=== PATIENT | male | born 1965 | race Caucasian/White ===

== ENCOUNTER 2017-03-30 14:59 | Emergency (ER) | payer OTHER ==
[~2017-03-30] VITALS: Ht 157.5 cm; Wt 87.5 kg
[~2017-03-30 14:59] MED LIST: INTESTINEX1 CAP PO; KETO10TA2 PO; MOTRIN800 MG PO; ORPH100T PO; PERCOCET 5/3251 TAB PO; ZANTAC150 M3 PO; ZANTAC150 MG PO
== END 2017-03-30 15:56 | disposition home or self-care (01) ==
LOC: ER 14:59
DX: K29.70 Gastritis, unspecified, without bleeding (principal)

== ENCOUNTER → 2017-04-16 | Emergency (ER) | payer OTHER | END | disposition left against medical advice (07) | LOC: ER 11:29 | DX: Z53.20 Procedure and treatment not carried out because of patient's decision for unspecified reasons (principal) ==

== ENCOUNTER 2017-09-17 09:12 | Emergency (ER) | payer OTHER ==
[~2017-09-17] VITALS: Ht 170.2 cm; Wt 87.5 kg
== END 2017-09-17 14:42 | disposition home or self-care (01) ==
LOC: ER 09:12
DX: M25.562 Pain in left knee (principal)

== ENCOUNTER 2017-10-02 12:13 | Emergency (ER) | payer OTHER ==
[~2017-10-02] VITALS: Ht 157.5 cm; Wt 67.1 kg
== END 2017-10-02 13:45 | disposition home or self-care (01) ==
LOC: ER 12:13
DX: S39.012A Strain of muscle, fascia and tendon of lower back, initial encounter (principal); W18.39XA Other fall on same level, initial encounter; Y93.89 Activity, other specified; Y92.098 Other place in other non-institutional residence as the place of occurrence of the external cause; Y99.8 Other external cause status

== ENCOUNTER 2017-12-10 10:30 | Emergency (ER) | payer OTHER ==
[~2017-12-10] VITALS: Ht 170.2 cm; Wt 99.8 kg
[2017-12-10] MEDS ORDERED: KETO10TA2 PO (14:39)
[2017-12-10] MEDS ORDERED: NORFLEX100MG PO (14:39)
== END 2017-12-10 15:27 | disposition home or self-care (01) ==
LOC: ER 10:30
DX: M54.5 Low back pain (principal); M25.562 Pain in left knee

== ENCOUNTER 2018-06-07 09:43 | Emergency (ER) | payer OTHER ==
[~2018-06-07] VITALS: Ht 170.2 cm; Wt 104.3 kg
[~2018-06-07 09:43] MED LIST changes: +NORFLEX100MG PO
[2018-06-07] MEDS ORDERED: COZAAR50 MG PO (09:53)
[2018-06-07] MEDS ORDERED: PERCOCET 5-3251 EACH PO (09:59)
[2018-06-07] MEDS ORDERED: MEDROLPACK PO (14:24)
[2018-06-07] MEDS ORDERED: SKELAXIN800 MG PO (14:24)
== END 2018-06-07 14:46 | disposition home or self-care (01) ==
LOC: ER 09:43
DX: M79.662 Pain in left lower leg (principal)

== ENCOUNTER 2018-09-09 20:18 | Emergency (ER) | payer OTHER ==
[~2018-09-09] VITALS: Ht 170.2 cm; Wt 87.5 kg
[~2018-09-09 20:18] MED LIST changes: +COZAAR50 MG PO; +MEDROLPACK PO; +PERCOCET 5-3251 EACH PO; +SKELAXIN800 MG PO
== END 2018-09-09 21:46 | disposition home or self-care (01) ==
LOC: ER 20:18
DX: M94.0 Chondrocostal junction syndrome [Tietze] (principal)

== ENCOUNTER 2020-07-31 20:14 | Emergency (ER) | payer OTHER ==
[~2020-07-31] VITALS: Ht 170.2 cm; Wt 97.5 kg
== END 2020-07-31 22:48 | disposition home or self-care (01) ==
LOC: ER 20:14
DX: R07.89 Other chest pain (principal); M94.0 Chondrocostal junction syndrome [Tietze]

== ENCOUNTER 2023-11-05 02:30 | Emergency (ER) | payer OTHER ==
[~2023-11-05] VITALS: Ht 157.5 cm; Wt 99.8 kg
[2023-11-05] MEDS ORDERED: ORPHENADRINE CITRATE 30 MG/ML AMPUL IM STA (03:55)
[2023-11-05] MEDS ORDERED: ACETAMINOPHEN 500 MG GEL..CAP PO STA (03:56)
[2023-11-05] MEDS ORDERED: ACETAMINOPHEN 500 MG GEL..CAP PO ONE (03:59)
[2023-11-05] MEDS ORDERED: DOLOGESIC-DF 51 EACH PO (05:00)
== END 2023-11-05 05:05 | disposition home or self-care (01) ==
LOC: ER 02:31
DX: M94.0 Chondrocostal junction syndrome [Tietze] (principal); M54.9 Dorsalgia, unspecified; R07.9 Chest pain, unspecified; I10 Essential (primary) hypertension; Z88.6 Allergy status to analgesic agent; Z91.041 Radiographic dye allergy status
CPT/HCPCS: 36415; 71046; 93005; 96372; 99283; J2360

== ENCOUNTER 2023-11-11 16:31 | Emergency (ER) | payer OTHER ==
[~2023-11-11] VITALS: Ht 170.2 cm; Wt 99.8 kg
[~2023-11-11 16:31] MED LIST changes: +DOLOGESIC-DF 51 EACH PO
[2023-11-11] MEDS ORDERED: COZAAR100 MG (16:53)
[2023-11-11] MEDS ORDERED: ORPHENADRINE CITRATE 30 MG/ML AMPUL IM STA (18:23)
[2023-11-11] MEDS ORDERED: ORPHENADRINE CITRATE 30 MG/ML AMPUL ONE (18:28)
== END 2023-11-11 18:33 | disposition home or self-care (01) ==
LOC: ER 16:32
DX: M54.9 Dorsalgia, unspecified (principal); Z91.041 Radiographic dye allergy status; Z88.6 Allergy status to analgesic agent; Z91.013 Allergy to seafood; Z88.8 Allergy status to other drugs, medicaments and biological substances
CPT/HCPCS: 96372; 99282; J2360

== ENCOUNTER 2023-11-17 16:24 | Emergency (ER) | payer OTHER ==
[~2023-11-17] VITALS: Ht 157.5 cm; Wt 97.5 kg
[~2023-11-17 16:24] MED LIST changes: +COZAAR100 MG
[2023-11-17] MEDS ORDERED: 0.9 % SODIUM CHLORIDE 1,000 ML IV ONE (17:00)
[2023-11-17] MEDS ORDERED: FAMOtidine 10 MG/ML (4ML VIAL) IV ONE (17:00)
[2023-11-17] MEDS ORDERED: FAMOTIDINE/PF 20 MG/2 ML VIAL ONE (17:02)
[2023-11-17 17:22] LABS: HEMATOCRIT 38.8 % (39.0-48.0); HEMOGLOBIN 13.5 g/dL (13-16.00); MEAN CELL VOLUME 90.2 fL (80.0-100.00); MEAN CORPUSCULAR HEMOGLOBIN 31.3 pg (27.00-32.0); MEAN CORPUSCULAR HGB CONC 34.7 g/dl (32.0-36.0); PLATELET COUNT 251 K/uL (150-450); RED CELL DISTRIBUTION WIDTH 13.3 % (11.5-14.5)
[2023-11-17 17:40] LABS: INR 1.1; PARTIAL THROMBOPLASTIN TIME 29.7 SECONDS (22.0-34.0); PROTHROMBIN TIME 11.9 SECONDS (9.0-11.5)
[2023-11-17 17:47] LABS: ALBUMIN 3.2 gm/dL (3.4-5.0); BILIRUBIN TOTAL 0.36 mg/dL (0.3-1.2); CREATININE SERUM 1.05 mg/dL (0.70-1.30); GFR 72.05; GLOBULINA 3.5 G/DL (2.4-3.5); POTASSIUM 3.46 mEq/L (3.5-5.1); TOTAL PROTEIN 6.7 gm/dL (6.4-8.2)
[2023-11-17 17:50] LABS: COCAINE NEGATIVE (NEGATIVE); METHADONE NEGATIVE (NEGATIVE); OPIATES NEGATIVE (NEGATIVE); THC ( Cannabinoids) NEGATIVE (NEGATIVE)
[2023-11-17 17:56] LABS: URINE APPEARANCE Clear; URINE BILIRRUBIN Negative (NEGATIVE); URINE BLOOD Small; URINE COLOR Yellow; URINE GLUCOSE Negative (NEGATIVE); URINE KETONE Trace (NEGATIVE); URINE LEUKOCYTE Trace; URINE NITRATE Negative; URINE PROTEIN Trace (NEGATIVE)
[2023-11-17 17:59] LABS: URINE BACTERIA 12.5 uL (0.0-1933); URINE EPITHELIAL CELLS 3.7 uL (0.0-38.8); URINE RBC 45.8 uL (0.0-20.8); URINE WBC 30.7 uL (0.0-23.2)
[2023-11-17 18:09] LABS: URINE CAST 0.15 uL (0.0-1.40)
[2023-11-17] MEDS ORDERED: LOSARTAN POTASSIUM 25 MG TABLET PO SCH (18:23)
[2023-11-17] MEDS ORDERED: ENALAPRILAT DIHYDRATE 2.5 MG/2 ML VIAL IV PRN (18:30)
[2023-11-17] MEDS ORDERED: CEFTRIAXONE SODIUM 1,000 MG VIAL IM ONE (18:30)
[2023-11-17] MEDS ORDERED: CEFTRIAXONE SODIUM 1,000 MG VIAL ONE (18:33)
== END 2023-11-19 09:26 | disposition left against medical advice (07) ==
LOC: ER 16:26
PROVIDERS: General Practice
DX: R10.9 Unspecified abdominal pain (principal); Z91.041 Radiographic dye allergy status; Z88.6 Allergy status to analgesic agent; Z91.013 Allergy to seafood; J45.909 Unspecified asthma, uncomplicated; I10 Essential (primary) hypertension; N20.0 Calculus of kidney; K80.80 Other cholelithiasis without obstruction
CPT/HCPCS: 36415; 71045; 93005; 96365; 96366; 99284; J0696; J3490; J7030

== ENCOUNTER → 2024-02-11 | Emergency (ER) | payer OTHER ==
[~2024-02-11] VITALS: Ht 157.5 cm; Wt 97.5 kg
[2024-02-11 14:46] LABS: HEMATOCRIT 40.7 % (39.0-48.0); HEMOGLOBIN 14.4 g/dL (13-16.00); MEAN CELL VOLUME 88.8 fL (80.0-100.00); MEAN CORPUSCULAR HEMOGLOBIN 31.4 pg (27.00-32.0); MEAN CORPUSCULAR HGB CONC 35.3 g/dl (32.0-36.0); PLATELET COUNT 262 K/uL (150-450); RED BLOOD COUNT 4.59 M/uL (4.00-6.00); RED CELL DISTRIBUTION WIDTH 13.6 % (11.5-14.5)
[2024-02-11 15:04] LABS: ALBUMIN 3.6 gm/dL (3.4-5.0); BILIRUBIN TOTAL 0.4 mg/dL (0.3-1.2); CALCIUM 9.4 mg/dL (8.5-10.1); CREATININE SERUM 0.88 mg/dL (0.70-1.30); GFR 88.33; GLOBULINA 3.3 G/DL (2.4-3.5); POTASSIUM 3.6 mEq/L (3.5-5.1); TOTAL PROTEIN 6.9 gm/dL (6.4-8.2)
[2024-02-11 16:30] LABS: PH,URINE 6.5 (5.0-8.0); URINE APPEARANCE Clear; URINE BILIRRUBIN Negative (NEGATIVE); URINE COLOR Yellow; URINE GLUCOSE Negative (NEGATIVE); URINE KETONE Negative (NEGATIVE); URINE LEUKOCYTE Negative; URINE NITRATE Negative; URINE PROTEIN Negative (NEGATIVE)
[2024-02-11 16:34] LABS: URINE BACTERIA 12.5 uL (0.0-1933); URINE EPITHELIAL CELLS 1.5 uL (0.0-38.8); URINE RBC 16.9 uL (0.0-20.8); URINE WBC 17.2 uL (0.0-23.2)
[2024-02-11 16:42] LABS: URINE BLOOD TRACE
[2024-02-11 16:59] LABS: COCAINE NEGATIVE (NEGATIVE); METHADONE NEGATIVE (NEGATIVE); OPIATES NEGATIVE (NEGATIVE); THC ( Cannabinoids) NEGATIVE (NEGATIVE)
== END | disposition home or self-care (01) ==
LOC: ER 13:22
PROVIDERS: General Practice
DX: R45.851 Suicidal ideations (principal); Z20.822 Contact with and (suspected) exposure to COVID-19; I10 Essential (primary) hypertension; Z88.6 Allergy status to analgesic agent; Z91.013 Allergy to seafood; Z91.041 Radiographic dye allergy status

== ENCOUNTER 2024-02-13 16:00 | Outpatient (CLI) | payer OTHER | END 2024-02-13 16:10 | disposition home or self-care (01) | LOC: PPH VACUNA 16:00 | PROVIDERS: ATTEND Emergency Medicine Pediatric Emergency Medicine | DX: Z23 Encounter for immunization (principal) ==

== ENCOUNTER 2024-04-02 10:52 | Emergency (ER) | payer OTHER ==
[~2024-04-02] VITALS: Ht 177.8 cm; Wt 68.0 kg
[2024-04-02 12:55] LABS: HEMATOCRIT 41.4 % (39.0-48.0); MEAN CELL VOLUME 90.8 fL (80.0-100.00); MEAN CORPUSCULAR HEMOGLOBIN 30.7 pg (27.00-32.0); MEAN CORPUSCULAR HGB CONC 33.8 g/dl (32.0-36.0); PLATELET COUNT 274 K/uL (150-450); RED BLOOD COUNT 4.55 M/uL (4.00-6.00); RED CELL DISTRIBUTION WIDTH 13.5 % (11.5-14.5)
[2024-04-02 13:19] LABS: CALCIUM 9.2 mg/dL (8.5-10.1); CREATININE SERUM 0.79 mg/dL (0.70-1.30); GFR 100.05; POTASSIUM 4.1 mEq/L (3.5-5.1)
== END 2024-04-02 14:07 | disposition home or self-care (01) ==
LOC: ER 10:52
PROVIDERS: General Practice
DX: R53.81 Other malaise (principal); R42 Dizziness and giddiness; Z88.6 Allergy status to analgesic agent; Z91.013 Allergy to seafood; Z91.041 Radiographic dye allergy status

== ENCOUNTER 2024-05-03 21:18 | Emergency (ER) | payer OTHER ==
[~2024-05-03] VITALS: Ht 157.5 cm; Wt 87.5 kg
[2024-05-04] MEDS ORDERED: ORPHENADRINE CITRATE 30 MG/ML AMPUL ONE (00:07)
[2024-05-04] MEDS ORDERED: DEXAMETHASONE SODIUM PHOSPHATE 4 MG/ML VIAL ONE (00:08)
[2024-05-04] MEDS ORDERED: DEXAMETHASONE SODIUM PHOSPHATE 4 MG/ML VIAL IM ONE (00:15)
[2024-05-04] MEDS ORDERED: ORPHENADRINE CITRATE 30 MG/ML AMPUL IM ONE (00:15)
== END 2024-05-04 01:43 | disposition home or self-care (01) ==
LOC: ER 21:20
DX: M94.0 Chondrocostal junction syndrome [Tietze] (principal); Z91.041 Radiographic dye allergy status; Z91.013 Allergy to seafood; Z88.6 Allergy status to analgesic agent; I10 Essential (primary) hypertension; J45.909 Unspecified asthma, uncomplicated
CPT/HCPCS: 36415; 96372; 99282; J1100; J2360

== ENCOUNTER 2024-05-24 00:25 | Emergency (ER) | payer OTHER ==
[~2024-05-24] VITALS: Ht 157.5 cm; Wt 90.7 kg
[2024-05-24] MEDS ORDERED: DEXAMETHASONE SODIUM PHOSPHATE 4 MG/ML VIAL IM STA (06:17)
[2024-05-24] MEDS ORDERED: ORPHENADRINE CITRATE 30 MG/ML AMPUL IM STA (06:17)
== END 2024-05-24 06:25 | disposition home or self-care (01) ==
LOC: ER 00:27
DX: M94.0 Chondrocostal junction syndrome [Tietze] (principal); Z91.041 Radiographic dye allergy status; Z91.013 Allergy to seafood; Z88.6 Allergy status to analgesic agent; I10 Essential (primary) hypertension
CPT/HCPCS: 93005; 96372; 99283; J1100; J2360

== ENCOUNTER 2024-06-05 19:00 | Emergency (ER) | payer OTHER ==
[~2024-06-05] VITALS: Ht 157.5 cm; Wt 86.2 kg
[2024-06-05] MEDS ORDERED: FAMOtidine 10 MG/ML (4ML VIAL) IV ONE (20:45)
[2024-06-05] MEDS ORDERED: ONDANSETRON HCL 2 MG/ML VIAL IV ONE (20:45)
[2024-06-05] MEDS ORDERED: ONDANSETRON HCL 2 MG/ML VIAL ONE (20:47)
[2024-06-05] MEDS ORDERED: FAMOTIDINE/PF 20 MG/2 ML VIAL ONE (20:47)
[2024-06-05 21:18] LABS: HEMOGLOBIN 13.6 g/dL (13-16.00); MEAN CORPUSCULAR HEMOGLOBIN 31.4 pg (27.00-32.0); MEAN CORPUSCULAR HGB CONC 34.9 g/dl (32.0-36.0); PLATELET COUNT 247 K/uL (150-450); RED BLOOD COUNT 4.34 M/uL (4.00-6.00); RED CELL DISTRIBUTION WIDTH 13.3 % (11.5-14.5)
[2024-06-05 21:39] LABS: ALBUMIN 3.3 gm/dL (3.4-5.0); BILIRUBIN TOTAL 0.42 mg/dL (0.3-1.2); CALCIUM 9.1 mg/dL (8.5-10.1); CREATININE SERUM 0.76 mg/dL (0.70-1.30); GFR 104.62; GLOBULINA 3.2 G/DL (2.4-3.5); POTASSIUM 3.42 mEq/L (3.5-5.1); TOTAL PROTEIN 6.5 gm/dL (6.4-8.2)
[2024-06-05] MEDS ORDERED: POTASSIUM BICARBONATE/CIT AC 25 MEQ TABLET.EFF PO ONE (22:00)
[2024-06-05] MEDS ORDERED: PEPCID AC20 MG PO (22:06)
[2024-06-05] MEDS ORDERED: ZOFRAN8 MG PO (22:06)
== END 2024-06-05 22:34 | disposition home or self-care (01) ==
LOC: ER 19:02
PROVIDERS: Preventive Medicine Public Health & General Preventive Medicine
DX: R53.81 Other malaise (principal); K52.9 Noninfective gastroenteritis and colitis, unspecified; I10 Essential (primary) hypertension; Z88.6 Allergy status to analgesic agent; Z91.013 Allergy to seafood; Z91.041 Radiographic dye allergy status
CPT/HCPCS: 36415; 93005; 96365; 99282; J2405; J3490

== ENCOUNTER 2024-06-07 19:40 | Emergency (ER) | payer OTHER ==
[~2024-06-07] VITALS: Ht 157.5 cm; Wt 86.2 kg
[~2024-06-07 19:40] MED LIST changes: +PEPCID AC20 MG PO; +ZOFRAN8 MG PO
[2024-06-07] MEDS ORDERED: FAMOtidine 10 MG/ML (4ML VIAL) IV PUSH ONE (20:15)
[2024-06-07] MEDS ORDERED: TRAMADOL HCL 50 MG TABLET PO ONE (20:15)
[2024-06-07 21:08] LABS: HEMATOCRIT 38.1 % (39.0-48.0); HEMOGLOBIN 13.1 g/dL (13-16.00); MEAN CELL VOLUME 91.4 fL (80.0-100.00); MEAN CORPUSCULAR HEMOGLOBIN 31.4 pg (27.00-32.0); MEAN CORPUSCULAR HGB CONC 34.3 g/dl (32.0-36.0); PLATELET COUNT 223 K/uL (150-450); RED BLOOD COUNT 4.17 M/uL (4.00-6.00); RED CELL DISTRIBUTION WIDTH 13.2 % (11.5-14.5)
[2024-06-07 21:52] LABS: ALBUMIN 3.1 gm/dL (3.4-5.0); BILIRUBIN TOTAL 0.36 mg/dL (0.3-1.2); CALCIUM 9.1 mg/dL (8.5-10.1); CREATININE SERUM 0.89 mg/dL (0.70-1.30); GFR 87.19; GLOBULINA 3.1 G/DL (2.4-3.5); POTASSIUM 3.87 mEq/L (3.5-5.1); TOTAL PROTEIN 6.2 gm/dL (6.4-8.2)
[2024-06-07 23:09] LABS: ABG PH 7.422 (7.35-7.45); ABG PO2 99.6 mmHg (80-100); ABG pCO2 41.2 mmHg (35-45); BASE EXCESS 1.6 mmol/l; BICARBONATE 26.2 mmol/l (23-25); SaO2 97.9 %; Tco2 27.5 mmol/l; allen test SATISFACTORY; o2 21 %; puncture site RADIAL LEFT
== END 2024-06-07 22:27 | disposition home or self-care (01) ==
LOC: ER 19:40
PROVIDERS: General Practice
DX: R06.02 Shortness of breath (principal); I10 Essential (primary) hypertension; Z88.6 Allergy status to analgesic agent; Z91.013 Allergy to seafood; Z88.8 Allergy status to other drugs, medicaments and biological substances; Z87.09 Personal history of other diseases of the respiratory system; Z85.89 Personal history of malignant neoplasm of other organs and systems
CPT/HCPCS: 36415; 71045; 82803; 93005; 93041; 96365; 99284; J3490